=== PATIENT | female | born 1960 | race Caucasian/White ===

== ENCOUNTER 2019-07-26 09:24 | Emergency (ER) | payer SELFPAY ==
[2019-07-26] MEDS ORDERED: Ketorolac 60 MG/2 ML SDV IM ONE (09:48)
--- NOTE | 2019-07-26 09:53 | EDM.PDOC ---
ED HPI GENERAL MEDICAL PROBLEM - General Chief Complaint: Lower Extremity Injury/Pain Stated Complaint: FELL Time Seen by Provider: 07/26/19 09:44 - History of Present Illness INITIAL COMMENTS - FREE TEXT/NARRATIVE: HISTORY AND PHYSICAL: History of present illness: The patient is a 59-year-old female who presents with complaints of left knee and ankle pain after she slipped and fell last evening about 6:30 PM. The patient says that she slipped on the ice and did the "splits" and twisted her left leg going down causing pain to her knee and ankle. She did not directly land on these areas and did not hit her head pass out or blackout. She has no left hip pain no other extremity complaints and no head neck or back pain. She only took one dose of ibuprofen last evening and nothing today and she has not been using ice. She has no neurosensory changes or weakness in the leg. Review of systems: As per history of present illness and below otherwise all systems reviewed and negative. Past medical history: As per history of present illness and as reviewed below otherwise noncontributory. Surgical history: As per history of present illness and as reviewed below otherwise noncontributory. Social history: No reported history of drug or alcohol abuse. Family history: As per history of present illness and as reviewed below otherwise noncontributory. Physical exam: General: Well-developed well-nourished female who is nontoxic and vital signs are noted by me HEENT: Atraumatic, normocephalic, negative for conjunctival pallor or scleral icterus, mucous membranes moist, throat clear, neck supple, nontender, trachea midline. There are no midline step-offs in his defects of the cervical spine Lungs: Clear to auscultation, breath sounds equal bilaterally, chest nontender. Heart: S1S2, regular rate and rhythm rhythm no overt murmurs Abdomen: Soft, nondistended, nontender. NABS . Pelvis: Stable nontender. No lateral hip tenderness on the left Genitourinary: Deferred. Rectal: Deferred. Extremities: Atraumatic and full range of motion of all images with the exception of the left ankle and left knee where there is diffuse soft tissue tenderness without ecchymosis or effusions. There are no palpable bony deformities appreciated at the patella knee tib-fib ankle or foot but there is diffuse tenderness at the ankle and knee areas. There is no abrasions or skin changes, negative for cords or calf pain. Neurovascular unremarkable. Neuro: Awake, alert, oriented. Cranial nerves II through XII unremarkable. Cerebellum unremarkable. Motor and sensory unremarkable throughout. Exam nonfocal. Back: There are no midline step-offs tenderness defects the thoracic or lumbar spine and no posterior rib or pelvis tenderness Diagnostics: X-ray left knee ankle and tib-fib Therapeutics: Toradol knee immobilizer crutches, Hieu bandage for knee and ankle Impression: Left knee and ankle injury/sprain contusion Definitive disposition and diagnosis as appropriate pending reevaluation and review of above. Left Knee Pain Score (Numeric/FACES): 10 - Related Data Allergies Allergy/AdvReac Type Severity Reaction Status Date / Time No Known Allergies Allergy Verified 07/26/19 09:42 Home Meds: Home Meds . [No Known Home Meds] 07/26/19 [History] Review of Systems - Review of Systems Review Of Systems: Comprehensive ROS is negative, except as noted in HPI. ED EXAM, GENERAL - Physical Exam Exam: See Below (See dictation) Course - Vital Signs Last Recorded V/S: Last Vital Signs Temp 36.9 C 07/26/19 09:42 Pulse 93 07/26/19 09:42 Resp 18 07/26/19 09:42 BP 167/88 H 07/26/19 09:42 Pulse Ox 96 07/26/19 09:42 - Orders/Labs/Meds Orders: Active Orders 24 hr Category Date Time Status DME for Discharge [COMM] Stat Oth 07/26/19 10:29 Ordered Meds: Medications Discontinued Medications Generic Name Dose Route Start Last Admin Trade Name Reji PRN Reason Stop Dose Admin Ketorolac Tromethamine 60 mg 07/26/19 09:48 07/26/19 10:18 Toradol IM 07/26/19 09:49 60 mg ONETIME ONE Administration Departure - Departure Time of Disposition: 10:30 Disposition: Home, Self-Care 01 Condition: Good Clinical Impression: Left knee injury Qualifiers: Encounter type: initial encounter Qualified Code(s): S89.92XA - Unspecified injury of left lower leg, initial encounter Left ankle injury Qualifiers: Encounter type: initial encounter Qualified Code(s): S99.912A - Unspecified injury of left ankle, initial encounter - Discharge Information Referrals: PCP,None [Primary Care Provider] - Forms: ED Department Discharge Additional Instructions: The following information is given to patients seen in the emergency department who are being discharged to home. This information is to outline your options for follow-up care. We provide all patients seen in our emergency department with a follow-up referral. The need for follow-up, as well as the timing and circumstances, are variable depending upon the specifics of your emergency department visit. If you don't have a primary care physician on staff, we will provide you with a referral. We always advise you to contact your personal physician following an emergency department visit to inform them of the circumstance of the visit and for follow-up with them and/or the need for any referrals to a consulting specialist. The emergency department will also refer you to a specialist when appropriate. This referral assures that you have the opportunity for followup care with a specialist. All of these measure are taken in an effort to provide you with optimal care, which includes your followup. Under all circumstances we always encourage you to contact your private physician who remains a resource for coordinating your care. When calling for followup care, please make the office aware that this follow-up is from your recent emergency room visit. If for any reason you are refused follow-up, please contact the [facility] emergency department at and ask to speak to the emergency department charge nurse. [facility] Professional [address], [address] [place] [address] Ice and elevate the area as much as possible and use crutches. Remove Hieu bandages at sleep times. Please call and schedule follow-up appointment in our ortho clinic and use [id number] ibuprofen/Motrin for pain management. Return to ER as needed as discussed - My Orders Last 24 Hours: My Active Orders 07/26/19 10:29 DME for Discharge [COMM] Stat - Assessment/Plan Last 24 Hours: My Active Orders 07/26/19 10:29 DME for Discharge [COMM] Stat
--- NOTE | 2019-07-26 10:23 | CR ---
Indication: Fall last night. Pain. Technique: Three views of the left knee. Comparison: None Findings: Mild narrowing in the medial compartment is identified. No fracture or subluxation is identified. No significant joint effusion is not appreciated. Impression: No acute fracture. Dictated by Sirisha Wright MD @ Jul 26 2019 10:22AM Signed by Dr. Sirisha Wright @ Jul 26 2019 10:23AM
--- NOTE | 2019-07-26 10:23 | CR ---
Indication: Fall. Pain. Technique: Three views of the left ankle were obtained. Comparison: None Findings: The ankle mortise is intact. The talar dome is intact. A small plantar calcaneal spur is identified. No fracture or subluxation is identified. Impression: Mild degenerative change. Dictated by Sirisha Wright MD @ Jul 26 2019 10:21AM Signed by Dr. Sirisha Wright @ Jul 26 2019 10:22AM
--- NOTE | 2019-07-26 10:26 | CR ---
Indication: Fall last night. Pain. Technique: Two views of the left lower leg. Comparison: None Findings: No acute fracture or subluxation. The joint spaces are well maintained. Impression: No acute fracture. Dictated by Sirisha Wright MD @ Jul 26 2019 10:24AM Signed by Dr. Sirisha Wright @ Jul 26 2019 10:24AM
== END 2019-07-26 10:52 | disposition home or self-care (01) ==
LOC: MW.ED 09:24
DX: S89.92XA Unspecified injury of left lower leg, initial encounter (principal); S99.912A Unspecified injury of left ankle, initial encounter; T07.XXXA Unspecified multiple injuries, initial encounter; W01.0XXA Fall on same level from slipping, tripping and stumbling without subsequent striking against object, initial encounter; X50.1XXA Overexertion from prolonged static or awkward postures, initial encounter
CPT/HCPCS: 73562; 73590; 73610; 96372; 99283; J1885